=== PATIENT | female | born 1965 | race African-American/Black ===

== ENCOUNTER 2017-01-10 10:34 | Outpatient (CLI) | payer MEDICAID ==
[~2017-01-10] VITALS: Ht 160 cm; Wt 118.2 kg
--- NOTE | ~2017-01-10 | HEMODYNAMI ---
PATIENT:JUSTYNA GUAMAN MEDICAL RECORD: [id number] : 69 LOCATION:[facility] ADMISSION DATE: 01/10/17 Generatedon:01/10/201713:24 Patient name: JUSTYNA GUAMAN Patient #: [id number] SSN: [id number] : 1965 Date of study: 01/10/2017 Page: Of Hemodynamic Procedure Report Patient Data Patient Demographics Procedure consent was obtained First Name: JUSTYNA Gender: Female Last Name: ROWENA : 1965 Middle Initial: TAMIE Age: 51 year(s) Patient #: [id number] Race: Black SSN: [id number] Additional ID: [id number] Contact details [address]: [address] [place] [address] State: [place] City: [place] Zip code: [address] Past Medical History Allergies Allergen Reaction Date Comments Reported Other allergy 01/10/2017 Nitro Admission Admission Data Admission Date: 01/10/2017 Admission Time: 10:34 Arrival Date: 01/10/2017 Arrival Time: 13:00 Admit Source: Other Insurance Payor: Private health insurance Height (in.): 63 BSA: 2.24 (m2) Height (cm.): 160.02 BMI: 50.13 (kg/m2) Weight (lbs.): 283 Weight (kg.): 128.37 Lab Results Lab Result Date: 01/10/2017 Lab Result Time: 0:00 Biochemistry Name Units Result Min Max BUN mg/dl 11 --(-*--)-- 7 18 Creatinine mg/dl 0.7 --(*---)-- 0.6 1.3 CBC Name Units Result Min Max Hemoglobin g/dl 11.6 *-(----)-- 13.5 17.5 Procedure Procedure Types Cath Procedure Diagnostic Procedure LHC LHC w/Coronaries Miscellaneous Procedures Moderate Sedation up to 15 minutes Procedure Description Procedure Date Procedure Date: 01/10/2017 Procedure Start Time: 13:08 Procedure End Time: 13:18 Procedure Staff Name Function Suzanne Fraser RT Scrub Yosvany Chang MD Performing Physician Essie Soto RN Nurse Dianne Vargas RT Monitor Procedure Data Cath Procedure Fluoroscopy Diagnostic fluoroscopy Total fluoroscopy Time: 1.6 time: 1.6 min min Diagnostic fluoroscopy Total fluoroscopy dose: 311 dose: 311 mGy mGy Contrast Material Contrast Material Type Amount (ml) Isovue 300 63 Entry Location Entry Primary Successful Side Size Upsize Upsize Entry Closure Succes sful Closure Location (Fr) 1 (Fr) 2 (Fr) Remarks Device Remarks Femoral Right 5 Fr Exoseal artery Estimated blood loss: 10 ml Diagnostic catheters Device Type Used For End Catheter Placement Cordis 5Fr JL 4.0 Procedure Catheter (MP) Cordis 5Fr 3DRC Catheter Procedure (MP) Cordis 5Fr Pigtail Ventriculography Catheter (MP) Procedure Complications No complications Procedure Medications Medication Administration Route Dosage Oxygen NC 2 l/min Heparin Flush Bag added to field 2 bags (1000units/500ml NS) Lidocaine 2% added to field 20 Lopressor I.V. 5 mg Benadryl I.V. 50 mg Hemodynamics Rest BSA: 2.24 (m2) HGB: 11.6 (g/dl) O2 Consumption: Estimated: 216.7 (ml/min) O2 Con sumption indexed: Estimated:96.74 (ml/min/m) Heart Rate: 66 (bpm) Pressure Samples Time Site Value (mmHg) Purpose Heart Use Rate(bpm) 13:10 AO 197/107(144) Snapshot 70 13:15 LV 206/31,42 Snapshot 74 Gradients Valve Time Site Site Mean SEP/DFP Peak To Heart Use 1 2 (mmHg) (sec/min) Peak Rate (mmHg) (bpm) Aortic 13:15 LV AO 75 Snapshots Pre Cath Intra NCS Post Cath Vital Signs Time Heart Resp SPO2 NIBP (mmHg) Rhythm Pain Sedation Rate (ipm) (%) Status Level (bpm) 13:00:12 73 27 99 180/91(149) NSR 0 (11) 10(A) , No pain 13:04:43 64 22 99 183/92(152) NSR 0 (11) 10(A) , No pain 13:09:15 67 22 100 183/94(136) NSR 0 (11) 10(A) , No pain 13:13:50 72 24 99 184/91(138) NSR 0 (11) 10(A) , No pain 13:18:24 80 18 100 198/108(178) NSR 0 (11) 10(A) , No pain Medications Time Medication Route Dose Verified Delivered Reason Notes Effec tiveness by by 12:58:59 Oxygen NC 2 Yosvany Essie Per l/min [facility] vann MD 12:59:10 Heparin Flush added 2 Yosvany Yosvany used for Bag to bags [facility] procedure (1000units/500ml field MD DAILEY NS) 12:59:20 Lidocaine 2% added 20ml Yosvany Yos[facility]any [facility] MD DAILEY 13:00:33 Benadryl I.V. 50 mg Yosvany Essie Per [facility] vann MD 13:13:12 Lopressor I.V. 5 mg Yosvany Essie Per [facility] vann MD Procedure Log Time Note 12:20:51 Essie Soto RN sent for patient. Start room use. 12:25:26 Informed consent obtained and on chart 12:26:14 Admit Source: Other 12:26:18 Patient Height : 160.02 inches 12:26:31 Patient Weight : 128.37 lbs 12:27:36 Arrival Date: 01/10/2017 1:00:00 PM 12:27:48 Insurance Payor : Private health insurance 12:30:09 Lab Result : Hemoglobin 11.6 g/dl 12:30:09 Lab Result : Creatinine 0.7 mg/dl 12:30:09 Lab Result : BUN 11 mg/dl 12:30:17 Diagnostic Cath Status : Elective 12:30:58 Time tracking: Regular hours 12:31:03 Plan of Care:Hemodynamics will remain stable., Cardiac rhythm will remain stable., Comfort level will be maintained., Respiratory function will remain adequate., Patient/ family verbilizes understanding of procedure., Procedure tolerated without complication., Recovers from procedure without complications.. 12:33:13 Patient received from Pre/Post Procedure Room to CCL 3 Alert and oriented. Tansferred to table in Supine position. 12:33:14 Warm blankets applied, and shan hugger turned on for patient comfort. 12:33:15 ECG and BP/O2 sat monitors applied to patient. 12:33:15 Correct patient and procedure confirmed by team. 12:38:20 H&P Date Dictated: 12/29/2016 Within 30 days and on chart., H&P Addendum completed by physician on day of procedure. (MUST COMPLETE FOR ALL OUTPATIENTS). 12:38:21 Pre-procedure instructions explained to patient. 12:38:28 Family in waiting room. 12:38:32 Patient NPO since Midnight. 12:38:57 Patient allergic to Other allergyNitro 12:39:02 Is the patient allergic to Iodine/contrast media? No. 12:39:18 Is patient on blood thinner?No 12:41:42 Lab results completed and on chart. 12:42:04 Right groin area was prepped with chlora-prep and draped in sterile fashion 12:42:07 Alarms reviewed by RAzul N. 12:58:50 Vital chart was started 12:58:59 Oxygen 2 l/min NC was given by Essie Soto RN; Per physician; 12:59:10 Heparin Flush Bag (1000units/500ml NS) 2 bags added to field was given by Yosvany Chang MD; used for procedure; 12:59:15 Snore? No 12:59:17 Sleep apnea? No 12:59:19 Opens mouth fully? Yes 12:59:20 Lidocaine 2% 20ml vial added to field was given by Yosvany Chang MD; used for procedure; 12:59:32 IV patent on arrival in left forearm with 0.9% NaCl at KVO. 13:00:31 Baseline sample Acquired. 13:00:33 Benadryl 50 mg I.V. was given by Essie Soto RN; Per physician; 13:00:37 Rhythm: sinus rhythm 13:00:38 Full Disclosure recording started 13:05:01 Physician paged 13:05:03 --------ALL STOP TIME OUT------ 13:05:03 Physician arrived 13:05:04 Final Timeout: patient, procedure, and site verified with staff and physician. All members of the team are in agreement. 13:05:06 Right groin site verified by team. 13:05:11 Physical assessment completed. ASA score P 2 - A patient with mild systemic disease as per Yosvany Chang MD. 13:05:15 Sedation plan: IV Moderate Sedation Versed, Fentanyl 13:06:16 Use device set Femoral Dx 13:06:18 Medline Cath Pack opened to sterile field. 13:06:18 Bag Decanter opened to sterile field. 13:06:18 Acist Syringe opened to sterile field. 13:06:19 St Frankie 260cm J .035 wire opened to sterile field. 13:06:19 Terumo 5Fr Gibson Sheath opened to sterile field. 13:06:21 Diagnostic Infinity 5Fr Multipack catheter opened to sterile field. 13:06:21 Acist Manifold opened to sterile field. 13:06:21 Acist Hand Control opened to sterile field. 13:06:22 Tegaderm 4 x 4 opened to sterile field. 13:07:59 Procedure started. 13:08:03 Local anesthetic to right femoral artery with Lidocaine 2% by Yosvany Chang MD.INITIAL ACCESS ONLY 13:08:25 A 5 Fr sheath was inserted into the Right Femoral artery 13:09:33 A Cordis 5Fr JL 4.0 Catheter (MP) was advanced over the wire and used for Procedure. 13:10:31 LCA angiography performed. 13:12:11 Catheter removed. 13:12:19 A Cordis 5Fr 3DRC Catheter (MP) was advanced over the wire and used for Procedure. 13:13:12 Lopressor 5 mg I.V. was given by Essie Soto RN; Per physician; 13:13:55 RCA angiography performed. 13:13:56 Catheter removed. 13:14:04 A Cordis 5Fr Pigtail Catheter (MP) was advanced over the wire and used for Ventriculography. 13:14:15 LV gram done using BAR 13:15:38 EF : 55 % 13:15:54 Catheter removed. 13:16:10 Cordis 5Fr Exoseal opened to sterile field. 13:16:44 Sheath removed intact; hemostasis achieved with Exoseal to the Right Femoral artery. 13:16:47 Procedure ended.(Physican Out) 13:16:59 Fluoroscopy time 01.60 minutes. 13:17:04 Fluoroscopy dose: 311 mGy 13:17:04 Flurop Dose total: 311 13:17:22 Contrast amount:Isovue 300 63ml. 13:17:24 Sharps counted by scrub and verified by R.N. 13:17:27 Insertion/operative site no bleeding no hematoma. 13:17:28 Post Procedure Pulses reassessed and unchanged 13:17:31 Post procedure rhythm: unchanged. 13:17:35 Estimated blood loss: 10 ml 13:17:38 Post procedure instruction explained to patient.Patient verbalizes understanding. 13:17:50 Procedure type changed to Cath procedure, Diagnostic procedure, LHC, LHC w/Coronaries, Miscellaneous Procedures, Moderate Sedation up to 15 minutes 13:17:52 Procedure and supply charges have been captured, reviewed, submitted and are correct. 13:18:24 Procedure Complication : No complications 13:18:35 Vital chart was stopped 13:18:37 See physician's report for complete and final results. 13:18:48 Report given to Pre/Post Procedure Room. 13:18:51 Patient transfered to Pre/Post Procedure Room with Stretcher. 13:18:53 Full Disclosure recording stopped 13:18:53 Procedure ended. 13:18:57 End room use (Document Last) Device Usage Item Name Manufacture Quantity Catalog Hospital Part Current Minimal Lo t# / Number Charge Number Stock Stock Serial# Code Acist Acist 1 74575 611857 049497 396939 20 Syringe [employer] Bag Microtek 1 2002S 354147 66390 378185 5 Decanter [employer] Medline Cardinal 1 [id number] 741696 87593 391610 5 Cath Pack Health Terumo 5Fr Terumo 1 [id number] 404090 130673 525268 [address] St Frankie 1 738757 486128 446028 676286 30 260cm J .035 wire Acist Hand Acist 1 85792 264814 048992 935861 5 Control [employer] Inc Acist Acist 1 21057 094121 107125 930915 5 Manifold Medical [employer] Inc Diagnostic Cardinal 1 [id number] 026307 65472 137637 30 Infinity Health 5Fr Multipack catheter Tegaderm 4 3M 1 1626W 827254 583382 983970 5 x 4 Cordis 5Fr Cardinal 1 936271 5 JL 4.0 Health Catheter (MP) Cordis 5Fr Cardinal 1 283770 5 3DRC Health Catheter (MP) Cordis 5Fr Cardinal 1 [id number] 5 Pigtail Health Catheter (MP) Cordis 5Fr Cardinal 1 EX500 797785 662991 082191 10 [facility] Health Signature Audit [place] Stage Time Signature Unsigned Intra-Procedure 01/10/2017 Dianne Vargas 1:24:06 PM RT(R) Signatures Monitor : Dianne Vargas Signature : RT Date : Time : [id number] [place] [address]
[2017-01-10] MEDS ORDERED: NORVASC10 MG PO (11:13)
[2017-01-10] MEDS ORDERED: ZESTRIL40 MG PO (11:14)
[2017-01-10] MEDS ORDERED: METOPROLOL TART50 MG PO (11:15)
[2017-01-10] MEDS ORDERED: GEMFIBROZIL600 MG PO (11:15)
[2017-01-10] MEDS ORDERED: FERROUS GLUCON324 MG PO (11:16)
[2017-01-10] MEDS ORDERED: BAYER CHEWABLE81 MG PO (11:16)
[2017-01-10] MEDS ORDERED: CATAPRES0.2 MG PO (11:16)
[2017-01-10] MEDS ORDERED: HYDROCODONE-APA1 TAB PO (11:17)
[2017-01-10 11:19] VITALS: BP 141/64; Ht 160 cm; Wt 118.2 kg
[2017-01-10 11:59] LABS: BASOPHILS 0.5 % (0.0-2.0); EOSINOPHILS 1.8 % (0-7); HEMATOCRIT 36.8 % (36.0-48.0); HEMOGLOBIN 11.6 g/dL (12-16); LYMPHOCYTES 39.2 % (15-50); MCH 23.7 pg (26.0-34.0); MCHC 31.5 g/dL (31.0-37.0); MCV 75.1 fL (80.0-100.0); MEAN PLATELET VOLUME 9.9 fL (7.4-10.4); MONOCYTES 9.8 % (2-11); NEUTROPHILS 48.7 % (40-80); PLATELET COUNT 187 10x3/uL (130-400); RDW 15.7 % (11.5-14.5); WBC 3.9 10x3/uL (4.8-10.8)
[2017-01-10 12:09] LABS: CALC OSMOLALITY 276 mosm/kg (275-300); CALCIUM 8.9 mg/dL (8.5-10.1); CARBON DIOXIDE 28.8 mmol/L (21.0-32.0); CHLORIDE - SERUM 103 mmol/L (98-107); CREATININE - SERUM 0.7 mg/dL (0.6-1.3); GLUCOSE 133 mg/dL (74-106); POTASSIUM - SERUM 3.6 mmol/L (3.5-5.1); SODIUM 138 mmol/L (136-145); UREA NITROGEN 11 mg/dL (7-18); eGFR NON AFRICAN AMERICAN > 90 mL/min (90-120)
--- NOTE | 2017-01-10 13:50 | NUR ---
RESTING IN BED, VSS. ROOM AIR, NO RESP DISTRESS NOTED. RIGHT GROIN DRSG CDI, NO BLEEDING OR HEMATOMA NOTED. STATES SHE IS WET AND UNABLE TO CONTROL HER URINE. REC'D ORDER FROM [facility] FOR BAXTER CATHETER PLACEMENT.
--- NOTE | 2017-01-10 14:00 | NUR ---
18F BAXTER CATHETER PLACED PER ORDERS.
--- NOTE | 2017-01-10 14:20 | NUR ---
RIGHT GROIN DRSG CDI, NO BLEEDING OR HEMATOMA NOTED. NO C/O CHEST PAIN OR NAUSEA. SPRITE GIVEN. VSS.
--- NOTE | 2017-01-10 14:37 | NUR ---
RESTING IN BED, FAMILY AT BEDSIDE. VSS. RIGHT GROIN CDI, NO BLEEDING OR HEMATOMA NOTED. NO C/O NAUSEA/VOMITING. WILL CONTINUE TO MONITOR.
--- NOTE | 2017-01-10 17:16 | NUR ---
1445-RECEIVED REPORT FROM URSULA PATINO, PT RESTING IN ROOM, RIGHT GROIN CDI.
--- NOTE | 2017-01-10 17:21 | NUR ---
1600- TO REST ROOM VOID WITHOUT DIFF, IV D'C WITH CATH TIP INTACT, WRITTEN AND VERBAL INSTRUCTIONS GIVEN TO PT AND [id number], DENIES FURTHUR NEEDS
--- NOTE | 2017-01-12 14:02 | OP ---
PATIENT NAME: JUSTYNA GUAMAN MEDICAL RECORD: [id number] :69 LOCATION:[facility] ADMISSION DATE: SURGEON: ZBIGNIEW LANDIS MD DATE OF OPERATION: 01/10/2017 PROCEDURES: Left heart catheterization, selective coronary angiography, right femoral approach. CATHETERS: A 5-Gabonese sheath, 5/4 left and right [place], 5/4 pig. The procedure was well tolerated. The patient returned to the pak, sheath removed. ExoSeal device placed. FINDINGS: Left ventriculography in the 30-degree BAR view: Normal wall motion, normal systolic function. CORONARY ANATOMY: Left main: Left main is free of disease. LAD: Free of disease in the diagonal system. Circumflex: Free of disease in the marginal system. Right coronary artery: Dominant artery, gives rise to PDA, free of disease. IMPRESSION: Normal systolic function. Normal coronary anatomy. TRANSINT:[id number] Voice Confirmation ID: [id number] DOCUMENT ID: [id number] ZBIGNIEW LANDIS MD at 1402 CC: [id number] DICTATION DATE: 01/10/17 1323 CARROTING MACHINE OPERATOR: 01/10/172032 DEP CLI 01/10/17 [id number] [place] [address]
== END 2017-01-10 16:15 | disposition home or self-care (01) ==
LOC: D.CATH 10:34
PROVIDERS: Internal Medicine Interventional Cardiology
DX: I20.9 Angina pectoris, unspecified (principal)

== ENCOUNTER → 2017-06-11 09:46 | Outpatient (CLI) | payer MEDICAID ==
[2017-01-10 11:19] VITALS: BMI 46.1
[~2017-06-11 09:46] MED LIST: BAYER CHEWABLE81 MG PO; CATAPRES0.2 MG PO; FERROUS GLUCON324 MG PO; GEMFIBROZIL600 MG PO; HYDROCODONE-APA1 TAB PO; METOPROLOL TART50 MG PO; NORVASC10 MG PO; ZESTRIL40 MG PO
== END | disposition home or self-care (01) ==
LOC: D.RAD 09:46
DX: M79.672 Pain in left foot (principal)

== ENCOUNTER → 2017-09-13 16:56 | Outpatient (CLI) | payer MEDICAID ==
[2017-01-10 11:19] VITALS: BMI 46.1
== END | disposition home or self-care (01) ==
LOC: D.MAMMO 13:30
DX: N64.4 Mastodynia (principal)